=== PATIENT | male | born 1975 | race Caucasian/White ===

== ENCOUNTER 2021-06-27 08:48 | Outpatient (REF) | payer BC, SELFPAY ==
--- NOTE | ~2021-06-27 | US_ITS ---
EXAMINATION: US ABDOMEN COMPLETE CLINICAL INFORMATION: Right upper quadrant abdominal pain. COMPARISON: None TECHNIQUE: Real-time imaging of the abdominal viscera. FINDINGS: PANCREAS: Normal. ABDOMINAL AORTA: The proximal, mid, and distal segments are normal in caliber. INFERIOR VENA CAVA: Visualized portions are normal. LIVER: The liver is normal in size. The liver contour is normal. Liver echotexture is increased. There is a hypoechoic area adjacent to the gallbladder, a characteristic location of focal fatty sparing. No other focal hepatic lesion. There is no intrahepatic biliary duct dilatation seen. GALLBLADDER: The gallbladder is physiologically distended without evidence of stones, polyps, wall thickening or pericholecystic fluid. COMMON BILE DUCT: Normal in caliber measuring 0.3 cm in diameter. RIGHT KIDNEY: Normal. No hydronephrosis. No renal calculi or focal parenchymal lesions. The kidney measures 12.3 cm in maximum dimension. LEFT KIDNEY: The left kidney is abnormally rotated. No hydronephrosis. No renal calculi or focal parenchymal lesions. The kidney measures 11.8 cm in maximum dimension. SPLEEN: Upper normal in size. The spleen measures 13.0 cm in maximum dimension. FREE FLUID: None. US/US abdomen complete IMPRESSION: Echogenic liver probably representing fatty infiltration. Abnormal rotation of the left kidney.
== END 2021-06-27 08:49 | disposition home or self-care (01) ==
LOC: HO.HMGCX 08:48
PROVIDERS: PCP Internal Medicine; Visit Provider Internal Medicine
DX: R10.11 Right upper quadrant pain (principal)
CPT/HCPCS: 76700

== ENCOUNTER 2021-07-07 11:05 | Day surgery (SDC) | payer BC, SELFPAY ==
[2021-07-01 11:19] VITALS: BMI 32.5
--- NOTE | 2021-07-04 09:35 | HO.ANESPROP2 ---
Documented by User: Acacia Barraza NP 07/04/21 09:36 HPI - Anesthesia Eval Consult details Narrative: 46yo M for Upper Endoscopy [facility] Past Medical History Medical History Exercise-induced asthma GERD (gastroesophageal reflux disease) Surgical History Surgical History Hx of right inguinal hernia repair Hx of umbilical hernia repair Social History Social History Are you a primary respiratory care program director to a significant other at home: No Do you presently have visiting nurse or other home services: No Patient Tobacco Use Status: Never used Tobacco Use of substances other than those prescribed or required for medical reasons: No Have you been hit, kicked, punched, or otherwise hurt by someone within the past year? If so, by whom?: No Are you DNR?: No Advance Directives Information Provided: Yes (as above noted-will bring copy of HCP form DOS) Advance Directives on File: No Recently lost weight without trying: No Eating poorly because of decreased appetite: No Nutrition Risks: No Nutritional Risk Poor oral hygiene: No Meds Allergies Allergy/AdvReac Type Severity Reaction Status Date / Time montelukast [From Singulair] Allergy Severe palpitation Verified 07/07/21 11:26 s/anxiety/d yspnea Seasonal Allergies Allergy Intermediate itchy Verified 07/07/21 11:26 eyes/nasal congestion Home Medications Medication Instructions Recorded Confirmed Last Taken Type cetirizine 10 mg tablet (Zyrtec) 10 mg PO DAILY 06/30/21 06/30/21 Unknown History fluticasone propionate 50 1 spray INTRANASAL DAILY 06/30/21 06/30/21 Unknown History mcg/actuation nasal spray,suspension multivitamin 1 tab PO DAILY 06/30/21 06/30/21 Unknown History pantoprazole 40 mg tablet,delayed 40 mg PO BEDTIME 06/30/21 07/01/21 Unknown History release (Protonix) albuterol sulfate 90 mcg/actuation 2 puff INHALATION Q4-6H PRN 07/01/21 07/01/21 Unknown History aerosol inhaler (ProAir HFA) omeprazole 20 mg tablet,delayed 20 mg PO QAM 07/01/21 07/01/21 Unknown History release Exam Exam Date and Time: July 04, 2021 0935 Height,Weight and Vital Signs: Height 6 ft Weight 108.862 kg Assessment and Plan Assessment Anesthesia Assessment: Chart Reviewed Documented by User: Tammy Oviedo MD 07/07/21 12:23 [facility] Past Medical History Medical History Exercise-induced asthma GERD (gastroesophageal reflux disease) Family History Family history of problems with anesthesia: No Surgical History Surgical History Hx of right inguinal hernia repair Hx of umbilical hernia repair History of Problems with Anesthesia: No Social History Social History Are you a primary respiratory care program director to a significant other at home: No Do you presently have visiting nurse or other home services: No Patient Tobacco Use Status: Never used Tobacco Use of substances other than those prescribed or required for medical reasons: No Have you been hit, kicked, punched, or otherwise hurt by someone within the past year? If so, by whom?: No Are you DNR?: No Advance Directives Information Provided: Yes (as above noted-will bring copy of HCP form DOS) Advance Directives on File: No Recently lost weight without trying: No Eating poorly because of decreased appetite: No Nutrition Risks: No Nutritional Risk Poor oral hygiene: No Meds Allergies Allergy/AdvReac Type Severity Reaction Status Date / Time montelukast [From Singulair] Allergy Severe palpitation Verified 07/07/21 11:26 s/anxiety/d yspnea Seasonal Allergies Allergy Intermediate itchy Verified 07/07/21 11:26 eyes/nasal congestion Home Medications Medication Instructions Recorded Confirmed Last Taken Type cetirizine 10 mg tablet (Zyrtec) 10 mg PO DAILY 06/30/21 06/30/21 Unknown History fluticasone propionate 50 1 spray INTRANASAL DAILY 06/30/21 06/30/21 Unknown History mcg/actuation nasal spray,suspension multivitamin 1 tab PO DAILY 06/30/21 06/30/21 Unknown History pantoprazole 40 mg tablet,delayed 40 mg PO BEDTIME 06/30/21 07/01/21 Unknown History release (Protonix) albuterol sulfate 90 mcg/actuation 2 puff INHALATION Q4-6H PRN 07/01/21 07/01/21 Unknown History aerosol inhaler (ProAir HFA) omeprazole 20 mg tablet,delayed 20 mg PO QAM 07/01/21 07/01/21 Unknown History release Exam Airway Mallampati Class: II TM Dist: >3cm Neck ROM: Full Heart: rrr Lungs: cta Assessment and Plan Assessment Anesthesia Assessment: Anesthesia Plan Discussed and Chart Reviewed Final Anesthetic Review Family History of Problems with Anesthesia: No History of Problems with Anesthesia: No NPO: Yes ASA Class: II Final Preanesthetic Review: No Changes in Pt Med Stat, Meds/Allgs Chart Reviewed and Consent Obtained/Reviewed Patient Risk: Intermediate Procedure Risk: Intermediate Anesthetic Plan Anesthetic Plan: MAC: Disposition: Standard PACU
[2021-07-07 11:23] VITALS: BP 124/69; PULSE 66; RESP 16; TEMP 36.8; O2SAT 100
[2021-07-07] MEDS: Lactated Ringers 1,000 ML 100 ML IVCONT (11:30)
[2021-07-07 12:47] VITALS: BP 105/63; PULSE 75; RESP 16; TEMP 36.4; O2SAT 97
--- NOTE | 2021-07-07 12:54 | PM.OP ---
Brief Operative Note Date of Service: 07/07/21 Pre-op diagnosis: GERD Post-op diagnosis: other (Hiatal hernia, Duodenitis) Procedure: EGD with biopsies Surgeon: Sujit Powers Anesthesia: MAC Was an Ophthalmic Medical Technologist used for this Procedure?: No Estimated blood loss (mL): 2.0 Pathology: other (A. EG Junction at 38cm B. Gastric antrum) Condition: stable Disposition: PACU
[2021-07-07 13:02] VITALS: BP 109/68; PULSE 63; RESP 18; TEMP 36.4; O2SAT 99
--- NOTE | 2021-07-07 14:54 | OP_ITS ---
SURGEON: Sujit Powers MD INDICATIONS: The patient presents for evaluation of chronic gastroesophageal reflux. Full consent has been obtained from him for this, including risks of bleeding and perforation. PREOPERATIVE DIAGNOSIS: Chronic gastroesophageal reflux. POSTOPERATIVE DIAGNOSIS: PROCEDURE PERFORMED: Esophagogastroduodenoscopy with biopsy. ESTIMATED BLOOD LOSS: COMPLICATIONS: ANESTHESIA: Monitored anesthesia care. ASSISTANTS: SPECIMENS: POSTOPERATIVE DIAGNOSES: Chronic gastroesophageal reflux, hiatal hernia, rule out Gonzalez's esophagus, duodenitis. DESCRIPTION OF PROCEDURE: The patient was placed in the left lateral decubitus position. The Olympus video gastroscope was passed in the posterior oropharynx and upper esophagus under direct vision. The scope was passed slowly into the distal esophagus. The gastroesophageal junction appeared at 38 cm. There was some slight irregularity consistent with reflux and possibly small less than 1 cm areas of Gonzalez's mucosa. There was no esophagitis nor any lesions. There was a small hiatal hernia. The scope was advanced to pylorus and duodenum was cannulated to the descending portion. The duodenum including the bulb was carefully inspected and appeared normal other than some areas of erythema and edema in the duodenal bulb. The scope was withdrawn back into the stomach. The gastric antrum and body appeared normal with good peristalsis. The scope was retroflexed visualizing the proximal stomach carefully which appeared normal, without any sign of mass or ulceration. The scope was straightened. Biopsies were obtained in the gastric antrum. Scope was withdrawn back into the esophagus. Multiple biopsies were obtained at the EG junction at 38 cm. Proximal to this, the esophageal mucosa appeared normal. The scope was withdrawn from the patient. He tolerated the procedure well and was returned to recovery area in stable condition. IMPRESSION: 1. Hiatal hernia, gastroesophageal reflux, rule out Gonzalez's esophagus. 2. Duodenitis. PLAN: The results of the biopsies will be checked. If there is Gonzalez's esophagus without dysplasia, I would recommend a repeat upper endoscopy in 3 years. He has been advised not to use any aspirin and NSAIDs for at least a week. He did recently switch from the omeprazole 20 mg to pantoprazole 40 mg and is doing better on that. I did advise him to continue his daily pantoprazole. He had been using omeprazole twice a day and has only been using it at night in addition to the pantoprazole. Therefore, I did advise him to stop the omeprazole completely and hopefully just the pantoprazole by itself will suffice to keep the reflux stable. If things are otherwise stable, he will see me on a p.r.n. basis. MD PRESLEY Grant/EVON / [id number]
== END 2021-07-07 14:17 | disposition home or self-care (01) ==
PROVIDERS: PCP Internal Medicine; Visit Provider Internal Medicine
PROC: 0DJ08ZZ Inspection of Upper Intestinal Tract, Via Natural or Artificial Opening Endoscopic (ICD-10-PCS; CPT 43235; principal; 2021-07-07 12:10)
DX: K21.9 Gastro-esophageal reflux disease without esophagitis (principal); K29.80 Duodenitis without bleeding; K44.9 Diaphragmatic hernia without obstruction or gangrene; J45.990 Exercise induced bronchospasm; Z79.899 Other long term (current) drug therapy; Z79.51 Long term (current) use of inhaled steroids
CPT/HCPCS: 43239; 88305; 88342

== ENCOUNTER 2021-12-15 08:55 | Day surgery (SDC) | payer BC, SELFPAY ==
[2021-12-09 15:29] VITALS: BMI 33.2
--- NOTE | 2021-12-12 08:38 | HO.ANESPROP2 ---
Documented by User: Acacia Barraza NP 12/12/21 08:39 HPI - Anesthesia Eval Consult details Narrative: 46yo M for Colonoscopy [facility] Past Medical History Medical History Exercise-induced asthma GERD (gastroesophageal reflux disease) Family History Family history of problems with anesthesia: No Surgical History Surgical History Hx of right inguinal hernia repair Hx of umbilical hernia repair History of Problems with Anesthesia: No Social History Social History Are you a primary child care team lead to a significant other at home: No Do you presently have visiting nurse or other home services: No Patient Tobacco Use Status: Never used Tobacco Second Hand Smoke Exposure: No Use of substances other than those prescribed or required for medical reasons: No Are you DNR?: No Advance Directives: No Advance Directives Information Provided: Yes Advance Directives on File: No Meds Allergies Allergy/AdvReac Type Severity Reaction Status Date / Time montelukast [From [facility]] Allergy Severe palpitation Verified 07/07/21 11:26 s/anxiety/d yspnea Seasonal Allergies Allergy Intermediate itchy Verified 07/07/21 11:26 eyes/nasal congestion Home Medications Medication Instructions Recorded Confirmed Last Taken Type cetirizine 10 mg tablet (Zyrtec) 10 mg PO DAILY 06/30/21 06/30/21 Unknown History fluticasone propionate 50 1 spray INTRANASAL DAILY 06/30/21 06/30/21 Unknown History mcg/actuation nasal spray,suspension multivitamin 1 tab PO DAILY 06/30/21 06/30/21 Unknown History pantoprazole 40 mg tablet,delayed 40 mg PO BEDTIME 06/30/21 07/01/21 Unknown History release (Protonix) albuterol sulfate 90 mcg/actuation 2 puff INHALATION Q4-6H PRN 07/01/21 07/01/21 Unknown History aerosol inhaler (ProAir HFA) omeprazole 20 mg tablet,delayed 20 mg PO QAM 07/01/21 07/01/21 Unknown History release Exam Exam Date and Time: December 12, 2021 0838 Height,Weight and Vital Signs: Height 6 ft Weight 111.13 kg Assessment and Plan Assessment Anesthesia Assessment: Chart Reviewed Final Anesthetic Review Family History of Problems with Anesthesia: No History of Problems with Anesthesia: No Documented by User: Roque Hurt MD 12/15/21 10:00 [facility] Past Medical History Medical History Exercise-induced asthma GERD (gastroesophageal reflux disease) Surgical History Surgical History Hx of right inguinal hernia repair Hx of umbilical hernia repair Social History Social History Are you a primary child care team lead to a significant other at home: No Do you presently have visiting nurse or other home services: No Patient Tobacco Use Status: Never used Tobacco Second Hand Smoke Exposure: No Use of substances other than those prescribed or required for medical reasons: No Are you DNR?: No Advance Directives: No Advance Directives Information Provided: Yes Advance Directives on File: No Meds Allergies Allergy/AdvReac Type Severity Reaction Status Date / Time montelukast [From Singulair] Allergy Severe palpitation Verified 07/07/21 11:26 s/anxiety/d yspnea Seasonal Allergies Allergy Intermediate itchy Verified 07/07/21 11:26 eyes/nasal congestion Home Medications Medication Instructions Recorded Confirmed Last Taken Type cetirizine 10 mg tablet (Zyrtec) 10 mg PO DAILY 06/30/21 06/30/21 Unknown History fluticasone propionate 50 1 spray INTRANASAL DAILY 06/30/21 06/30/21 Unknown History mcg/actuation nasal spray,suspension multivitamin 1 tab PO DAILY 06/30/21 06/30/21 Unknown History pantoprazole 40 mg tablet,delayed 40 mg PO BEDTIME 06/30/21 07/01/21 Unknown History release (Protonix) albuterol sulfate 90 mcg/actuation 2 puff INHALATION Q4-6H PRN 07/01/21 07/01/21 Unknown History aerosol inhaler (ProAir HFA) omeprazole 20 mg tablet,delayed 20 mg PO QAM 07/01/21 07/01/21 Unknown History release Exam Airway Mallampati Class: II TM Dist: >3cm Neck ROM: Full Loose/Missing/Broken Teeth: No Heart: [id number] Lungs: cta b/l Assessment and Plan Assessment Anesthesia Assessment: Anesthesia Plan Discussed Final Anesthetic Review NPO: Yes ASA Class: II Final Preanesthetic Review: No Changes in Pt Med Stat, Meds/Allgs Chart Reviewed, Consent Obtained/Reviewed and Anes Risks/Benef Reviewed Patient Risk: Intermediate Procedure Risk: Low Assessment/Block/Sedation in SS: Assess/Block/Sedation-SS Anesthetic Plan Anesthetic Plan: MAC: and Agree w/ Assess. and Plan Disposition: Standard PACU
[2021-12-15 09:27] VITALS: BP 109/65; PULSE 78; RESP 16; TEMP 36.7; O2SAT 100
[2021-12-15] MEDS: Lactated Ringers 1,000 ML 100 ML IVCONT (09:33)
[2021-12-15 10:56] VITALS: BP 88/51; PULSE 78; RESP 16; TEMP 36.1; O2SAT 96
--- NOTE | 2021-12-15 10:58 | PM.OP ---
Brief Operative Note Date of Service: 12/15/21 Pre-op diagnosis: Screening Post-op diagnosis: other (Colon polyps) Procedure: Colonoscopy to the cecum and TI with biopsies and removal of polyps Surgeon: Sujit Powers Anesthesia: MAC Was an Shaving Machine Operator used for this Procedure?: No Estimated blood loss (mL): 2.0 Pathology: other (A. Polyps at 15cm) Condition: stable Disposition: PACU
[2021-12-15 11:09] VITALS: BP 95/59; PULSE 68; RESP 16; O2SAT 96
[2021-12-15 11:23] VITALS: BP 99/63; PULSE 62; RESP 16; O2SAT 99
[2021-12-15 11:37] VITALS: BP 101/64; PULSE 67; RESP 16; TEMP 36.3; O2SAT 99
--- NOTE | 2021-12-15 21:57 | OP_ITS ---
SURGEON: Sujit Powers MD INDICATIONS: The patient presents for evaluation of colorectal cancer screening. Full consent was obtained from him for this, including risks of bleeding and perforation. PREOPERATIVE DIAGNOSIS: Colorectal cancer screening. POSTOPERATIVE DIAGNOSIS: PROCEDURE PERFORMED: Colonoscopy to cecum and terminal ileum with biopsy and removal of polyps. ESTIMATED BLOOD LOSS: COMPLICATIONS: ANESTHESIA: Monitored anesthesia care. ASSISTANTS: SPECIMENS: POSTOPERATIVE DIAGNOSES: Colorectal cancer screening, small colon polyps, small internal hemorrhoids. DESCRIPTION OF PROCEDURE: The patient was placed in the left lateral decubitus position. The digital rectal exam revealed no abnormalities. The Olympus video pediatric colonoscope was entered into the rectum and advanced easily to the cecum. Once in the cecum, I did identify normal-appearing cecal pouch with appendiceal orifice and a normal-appearing ileocecal valve. The terminal ileum was cannulated and appeared normal. The scope was withdrawn back in the colon. The entire cecum and ileocecal valve appeared normal. The scope was slowly withdrawn assessing all mucosal surfaces carefully. Preparation was excellent. At 15 cm were 2 flat approximately 3 mm polyps, which were each biopsied and completely removed with cold biopsy forceps. I did not visualize any other polyps, colitis, or angiodysplasia. In the rectum, scope was retroflexed visualizing small internal hemorrhoids, but no other pathology. The rectal mucosa appeared normal. The scope was straightened and withdrawn from the patient. He tolerated the procedure well and was returned to the recovery area in stable condition. IMPRESSION: 1. Small colon polyps, status post biopsy and removal. 2. Internal hemorrhoids. PLAN: The results of biopsy will be checked. If these happen to be tubular adenoma, I would recommend a followup colonoscopy in 5 years. If they are both hyperplastic, I would recommend a followup colonoscopy in 10 years. He will continue his Protonix for his reflux and will see me again on a p.r.n. basis otherwise. Sujit Powers MD RMW/MODL / [id number]
== END 2021-12-15 12:17 | disposition home or self-care (01) ==
PROVIDERS: Visit Provider Internal Medicine
PROC: 0DJD8ZZ Inspection of Lower Intestinal Tract, Via Natural or Artificial Opening Endoscopic (ICD-10-PCS; CPT 45378; principal; 2021-12-15 10:10)
DX: Z12.11 Encounter for screening for malignant neoplasm of colon (principal); K63.5 Polyp of colon; K64.8 Other hemorrhoids; K21.9 Gastro-esophageal reflux disease without esophagitis; J45.990 Exercise induced bronchospasm; Z79.51 Long term (current) use of inhaled steroids; Z79.899 Other long term (current) drug therapy; Z88.8 Allergy status to other drugs, medicaments and biological substances
CPT/HCPCS: 45380; 88305